=== PATIENT | female | born 1960 ===

== ENCOUNTER 2025-05-16 13:48 | Inpatient (IN) | payer MEDICARE ==
[2025-05-16] MEDS ORDERED: MAGNESIUM HYDROXIDE 2,400 MG/30 ML CUP PO PRN (21:08)
[2025-05-16] MEDS ORDERED: HALOPERIDOL LACTATE 5 MG/ML 1 ML VIAL IM PRN (21:08)
[2025-05-16] MEDS ORDERED: LORazepam 1 MG TAB PO PRN (21:08)
[2025-05-17] MEDS: NICOTINE 14MG/24HR PATCH TRANSDERM SCH (07:47)
[2025-05-17 14:56] LABS: Cholesterol 123.00 mg/dL (0.00-200.00); HDL Cholesterol 36.80 mg/dL (40.00-60.00); LDL Cholesterol,Calculated 61.0 mg/dL (0.0-131.0); Triglycerides 126.00 mg/dL (0.00-149.00); VLDL Calculation 25.20 mg/dL (5.00-40.00)
[2025-05-17] MEDS: IBUPROFEN 600 MG TAB PO PRN (21:32)
[2025-05-17] MEDS ORDERED: BENZOCAINE/MENTHOL LOZENG 1 EACH LOZENGE MUCOUS MEM PRN (22:09)
[2025-05-18] MEDS: PALIPERIDONE 3 MG TAB.ER.24 PO SCH ×2 (02:10→22:22)
[2025-05-18] MEDS: ATORVASTATIN 20 MG TAB PO SCH (08:29)
[2025-05-18] MEDS: VALPROIC ACID ORAL SOLN 250 MG/5 ML CUP PO SCH (08:29)
[2025-05-18] MEDS: DICYCLOMINE 10 MG CAP PO SCH (08:29)
[2025-05-18] MEDS: SERTRALINE 50 MG TAB PO SCH (08:59)
[2025-05-18] MEDS: FUROSEMIDE 20 MG TAB PO SCH (09:07)
[2025-05-18] MEDS: MECLIZINE 25 MG TAB PO PRN (09:08)
[2025-05-18] MEDS: MAG HYDROX/AL HYDROX/SIMETH 355 ML BOTTLE PO PRN (14:04)
[2025-05-18] MEDS: ACETAMINOPHEN TAB 325 MG TAB PO PRN (15:34)
[2025-05-18 16:07] LABS: HCT 42.1 % (37.2-46.3); HGB 13.9 g/dL (12.0-15.0); MCH 31.0 pg (27.0-32.0); MCHC 33.0 g/dL (32.0-37.0); MCV 94.0 fL (80.0-97.0); Platelet Count 280 10*3/uL (140-440); RBC 4.48 10*6/uL (4.10-5.20); RDW 12.5 % (11.5-14.5); WBC 12.22 10*3/uL (4.50-10.00)
[2025-05-18 16:20] LABS: ALT 83 U/L (4-34); AST 106 U/L (14-36); African American GFR (CKD) 81 (>60 ml/min/1.73 sqM); Albumin 4.1 g/dL (3.5-5.0); Alkaline Phosphatase 95 U/L (38-126); Anion Gap 12 mmol/L; Blood Urea Nitrogen 12 mg/dL (7-17); Calcium 10.3 mg/dL (8.4-10.2); Carbon Dioxide 28 mmol/L (22-30); Chloride 100 mmol/L (98-107); Glucose 84 mg/dL (74-99); Non-African American GFR(CKD) 71 (>60 ml/min/1.73 sqM); Potassium 4.5 mmol/L (3.5-5.1); Sodium 140 mmol/L (137-145); Total Protein 6.8 g/dL (6.3-8.2)
[2025-05-18] MEDS ORDERED: PALIPERIDONE 3 MG TAB.ER.24 PO SCH (21:00)
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
--- NOTE | 2025-05-18 21:58 | P.PN ---
Progress Note - Text Progress Note Date: 05/18/25 Interval history: Patient was seen today in her room after finishing a shower. She appears irrit able, and is talking loudly, appears to have recovered her voice which she claimed to be losing last night. Her voice is loud, her tone appears condescending. This morning she refused her Zoloft stating she is allergic to it, but takes it anyways. Zoloft is listed on her allergy list however she reported this as a home medication that she takes regularly. She continues to be an unreliable historian, appears to contradict herself or provide unreliable information. Today she claims she needs high dose melatonin in order to sleep, claim she takes melatonin 50mg-100 mg at bedtime when at home. At this time, patient denies any suicidal or homicidal ideation, intent or plan. Denies any auditory or visual hallucinations. Patient denies any side effects from the medications and has been compliant with meds except for the Zoloft which she refused. Later in the evening she can be heard yelling at someone on the phone, appears to be related to housing of some sort. Labs reviewed. He Valproic acid level on admission was 48.4 on 05/17/25. Her AST is elevated today at 106 and her ALT is also elevated at 83. Mental status exam: General Appearance: Patient appears to be stated age, obese, dressed in hospital gown with wet hair. Behavior: Talking loudly, condescending tone, unreliable historian, later heard yelling on the phone. Speech: Patient's speech is fluent and non-pressured. Mood/Affect: Mood is irritable, affect is congruent and constricted. Suicidality/Homicidality: Patient denies having any suicidal or homicidal ideation intent or plan. Perceptions: Patient denies any auditory or visual hallucinations. Though content/process: There is no evidence of any overt delusional thought content and thought process is vague, unreliable historian. Memory and concentration: AOX3, grossly intact for the purposes of this session Judgment and insight: poor Assessment/Plan: Continue with current diagnosis. Patient continues to meet criteria for inpatient psychiatric admission for symptom stabilization and safety. Meds: Discontinue Zoloft 50 mg daily. It's unclear why patient reports this as a home medication and then claims she is "allergic" to it but that she "takes it any ways". She is currently refusing it so we will discontinue it. Increase Invega 3 mg QHS to 6 mg QHS for mood stabilization. Decrease Depakene from 250 mg TID to 250 mg BID due to elevated transaminases. Continue Melatonin 5 mg QHS for sleep. Monitor for medication compliance and for any psychotropic medication side effects. Will continue to monitor ongoing response to treatment. Encouraged participation in milieu.
[2025-05-18] MEDS: FAMOTIDINE 20 MG TAB PO SCH (22:03)
[2025-05-18] MEDS: MELATONIN 5 MG TABLET PO SCH (22:04)
[2025-05-18] MEDS: PALIPERIDONE 3 MG TAB.ER.24 PO STA (22:30)
[2025-05-18 22:59] VITALS: RESP 16
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
[2025-05-19] MEDS: VALPROIC ACID ORAL SOLN 250 MG/5 ML CUP PO SCH (09:46)
[2025-05-19 10:55] LABS: ALT 79 U/L (4-34); AST 69 U/L (14-36); African American GFR (CKD) 80 (>60 ml/min/1.73 sqM); Albumin 4.3 g/dL (3.5-5.0); Alkaline Phosphatase 107 U/L (38-126); Anion Gap 15 mmol/L; Blood Urea Nitrogen 11 mg/dL (7-17); Calcium 10.0 mg/dL (8.4-10.2); Carbon Dioxide 21 mmol/L (22-30); Chloride 103 mmol/L (98-107); Glucose 120 mg/dL (74-99); Non-African American GFR(CKD) 69 (>60 ml/min/1.73 sqM); Potassium 4.6 mmol/L (3.5-5.1); Sodium 139 mmol/L (137-145); Total Protein 7.1 g/dL (6.3-8.2)
--- NOTE | 2025-05-19 12:17 | P.PN ---
Progress Note - Text Progress Note Date: 05/19/25 Interval history: Patient was seen today and agreeable to speak to health science writer in the office. Patient claims that she is having still a sore throat and was recommended to take the receptacle lozenges. She was a bit intrusive with health science writer wanted him to take notes for her and her journal. Patient was less irritable today, more directable during conversation. She was fairly focused on her medications and also seeing her prescriber. She claims that she slept fairly last night has been eating well. Mainly keeping herself on the unit. Hygiene and grooming improving. We spoke again about the court process and that she will need to meet with the staff attorney to sign a deferral which she claims that she will most likely due to. At this time she is denying any auditory or visual hallucinations denies any suicidal or homicidal ideations intent or plan. Not reporting any side effects from medications. Mental status exam: General Appearance: Patient appears to be stated age, obese, dressed in hospital gown with wet hair. Behavior: More directable today attempts to cooperate Speech: Patient's speech is fluent and non-pressured. Mood/Affect: Mood is "a bit better" affect is congruent and constricted. Suicidality/Homicidality: Patient denies having any suicidal or homicidal ideation intent or plan. Perceptions: Patient denies any auditory or visual hallucinations. Though content/process: There is no evidence of any overt delusional thought content and thought process is vague, focused on discharge Memory and concentration: AOX3, grossly intact for the purposes of this session Judgment and insight: poor, improving mildly Assessment/Plan: Continue with current diagnosis. Patient continues to meet criteria for inpatient psychiatric admission for symptom stabilization and safety. Meds: Invega 6 mg QHS for mood stabilization/psychosis. Depakene 250 mg 250 mg BID for mood stabilization Continue Melatonin 5 mg QHS for sleep. Ordered environmental engineering assistant for medication compliance and for any psychotropic medication side effects. Will continue to monitor ongoing response to treatment. Encouraged participation in milieu. Currently awaiting for deferral and court date, hopeful for discharge in 2 days if patient is improving and signs deferral
[2025-05-20 09:21] VITALS: BP 108/75; PULSE 108; TEMP 98.2
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
[2025-05-20] MEDS: BENZOCAINE/MENTHOL LOZENG 1 EACH LOZENGE MUCOUS MEM PRN (11:11)
== END 2025-05-20 17:14 | disposition home or self-care (01) | DRG 885 ==
LOC: 3MHU 22:59
PROVIDERS: ADMIT Psychiatry & Neurology Psychiatry; ATTEND Psychiatry & Neurology Psychiatry
DX: F31.2 Bipolar disorder, current episode manic severe with psychotic features (principal); M62.82 Rhabdomyolysis; T74.21XA Adult sexual abuse, confirmed, initial encounter; Z59.00 Homelessness unspecified; F17.200 Nicotine dependence, unspecified, uncomplicated; R74.01 Elevation of levels of liver transaminase levels; G47.30 Sleep apnea, unspecified; E83.52 Hypercalcemia; F41.9 Anxiety disorder, unspecified; G89.29 Other chronic pain; M54.9 Dorsalgia, unspecified; Z91.199 Patient's noncompliance with other medical treatment and regimen due to unspecified reason; W19.XXXA Unspecified fall, initial encounter; Y07.030 Male partner, current, perpetrator of maltreatment and neglect; Y92.009 Unspecified place in unspecified non-institutional (private) residence as the place of occurrence of the external cause; Z88.1 Allergy status to other antibiotic agents; Z88.0 Allergy status to penicillin; Z88.8 Allergy status to other drugs, medicaments and biological substances
CPT/HCPCS: 80053; 80061; 80164; 83036; 85027